=== PATIENT | male | born 1950 | race Caucasian/White ===

== ENCOUNTER → 2017-04-17 | Outpatient (CLI) | payer OTHER | LOC: CIMAGING 08:41 | PROVIDERS: ATTEND Family Medicine | DX: K76.0 Fatty (change of) liver, not elsewhere classified (principal); N28.89 Other specified disorders of kidney and ureter | CPT/HCPCS: 76705-PO ==

== ENCOUNTER → 2017-04-22 | Outpatient (CLI) | payer OTHER ==
[~2017-04-22] MED LIST: IOPAMIDOL (ISOVUE-300) 100 ML BTL ONE
== END ==
LOC: CIMAGING 09:16
PROVIDERS: ATTEND Family Medicine
DX: N28.89 Other specified disorders of kidney and ureter (principal); K76.0 Fatty (change of) liver, not elsewhere classified; N20.0 Calculus of kidney
CPT/HCPCS: 74170; Q9967

== ENCOUNTER → 2017-04-26 | Outpatient (CLI) | payer OTHER | LOC: CIMAGING 19:14 | PROVIDERS: ATTEND Urology | DX: C64.9 Malignant neoplasm of unspecified kidney, except renal pelvis (principal) | CPT/HCPCS: 71046-PO ==

== ENCOUNTER → 2017-08-16 | Outpatient (CLI) | payer OTHER | LOC: CIMAGING 11:09 | PROVIDERS: ATTEND Urology | DX: Z08 Encounter for follow-up examination after completed treatment for malignant neoplasm (principal); K76.0 Fatty (change of) liver, not elsewhere classified; Z90.5 Acquired absence of kidney; Z90.49 Acquired absence of other specified parts of digestive tract; Z85.528 Personal history of other malignant neoplasm of kidney | CPT/HCPCS: 71260; 74170; Q9967; 36415-PO; 82565-PO ==

== ENCOUNTER → 2018-05-05 | Outpatient (CLI) | payer OTHER | LOC: CIMAGING 09:22 | PROVIDERS: ATTEND Urology | DX: C64.9 Malignant neoplasm of unspecified kidney, except renal pelvis (principal); Z90.5 Acquired absence of kidney | CPT/HCPCS: 71046-PO; 76770-PO; G0103 ==